=== PATIENT | female | born 1945 | race Caucasian/White ===

== ENCOUNTER 2021-09-13 14:27 | Emergency (ER) | payer MEDICARE ==
[~2021-09-13] VITALS: Ht 157.5 cm; Wt 79.4 kg
[2021-09-13 15:00] LABS: URINE BILIRUBIN NEGATIVE (Negative); URINE BLOOD NEGATIVE (Negative); URINE CLARITY CLEAR; URINE COLOR YELLOW; URINE GLUCOSE-RANDOM NEGATIVE (Negative); URINE KETONES NEGATIVE (Negative); URINE LEUKOCYTES-REFLEX TRACE (Negative); URINE NITRITE-REFLEX NEGATIVE (Negative); URINE PROTEIN NEGATIVE (Negative); URINE UROBILINOGEN 0.2 E.U./dl (0.2-1.0)
[2021-09-13 15:10] LABS: BACTERIA-REFLEX None Seen /HPF (None Seen); CASTS None Seen /LPF (None Seen); CRYSTALS None Seen /LPF (None Seen); MUCUS None Seen strn/LPF (None Seen); SQUAMOUS 4-10 Moderate /LPF (0-3); URINE RBC None Seen /HPF (0-2); URINE WBC-REFLEX 0-5 Rare /HPF (0-5)
[2021-09-13 15:13] LABS: ABSOLUTE LYMPHOCYTES 2.2 thou/uL (0.8-5.3); ABSOLUTE MONOCYTES 0.4 thou/uL (0.0-1.2); ABSOLUTE NEUTROPHILS 2.1 thou/uL (1.6-8.1); BASOPHILS 0.3 %; EOSINOPHILS 0.3 %; HEMATOCRIT 40.3 % (37.0-47.0); HEMOGLOBIN 13.9 gm/dL (12.0-15.0); LYMPHOCYTES 46.9 %; MCH 29.7 pg (26.0-34.0); MCHC 34.4 g/dL (28.0-37.0); MCV 86.4 fL (80.0-100.0); MONOCYTES 7.7 %; MPV 6.9 fl. (7.2-11.1); NUCLEATED RBCS 0 /100WBC; PLATELET COUNT* 183 thou/uL (150-400); POLYS 44.8 %; RBC 4.66 mil/uL (4.20-5.00); RDW-CV 13.3 % (10.5-14.5); WBC 4.6 thou/uL (4.0-11.0)
[2021-09-13 15:14] LABS: CALCIUM 9.5 mg/dL (8.5-10.1); CREATININE 0.9 mg/dL (0.6-1.3); POTASSIUM 3.8 mmol/L (3.5-5.1)
[2021-09-13 15:25] LABS: ALBUMIN 3.9 g/dL (3.4-5.0); MAGNESIUM 2.3 mg/dL (1.8-2.4); TOTAL BILIRUBIN 0.6 mg/dL (<0.1-1.0); TOTAL PROTEIN 7.5 g/dL (6.4-8.2)
--- NOTE | 2021-09-13 15:45 | EKG ---
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1945 Requested By: Ivan Ames Order Number: [id number] MD: Faisal Curry Measurements Intervals [place] Rate: 52 P: 47 NC: 209 QRS: -20 QRSD: 99 T: 112 QT: 442 QTc: 411 Interpretive Statements Sinus bradycardia Atrial premature complexes Probable left atrial enlargement LVH with secondary repolarization abnormality Inferior infarct, old Anterior infarct, old No previous ECG available for comparison Electronically Signed On 09-13-2021 15:45:01 STRUCTURAL TEST ENGINEER by Faisal Curry [email or web address] <ELECTRONICALLY SIGNED> By: Faisal Curry MD, FACC 09/13/21 1545 1437 1437 Faisal Curry MD, [facility] /EPI
[2021-09-13] MEDS ORDERED: HYDROCODON-ACE1 EAC7 PO (15:59)
[2021-09-13] MEDS ORDERED: FLEXERIL PO (16:05)
[2021-09-13 16:11] VITALS: BP 238/76
== END 2021-09-13 16:12 | disposition home or self-care (01) ==
LOC: M.ERS 14:27
PROVIDERS: Family Medicine
DX: R07.89 Other chest pain (principal); Z90.49 Acquired absence of other specified parts of digestive tract; Z90.710 Acquired absence of both cervix and uterus; Z88.2 Allergy status to sulfonamides